=== PATIENT | male | born 1985 | race Caucasian/White ===

== ENCOUNTER 2023-09-22 22:06 | Emergency (ER) | payer OTHER, SELFPAY ==
[2023-09-22] VITALS (8 sets, daily range): BP systolic 114–132; BP diastolic 72–87; PULSE 78–100; RESP 15–22; TEMP 36.3–36.8; O2SAT 96–100
--- NOTE | ~2023-09-22 | XR_ITS ---
EXAMINATION: XR ankle LT 2V DATE: 09/22/2023 22:25 INDICATION: Left ankle injury with deformity TECHNIQUE: Anteroposterior and lateral views of the left ankle were obtained. COMPARISON: None. FINDINGS: Trimalleolar fracture at the left ankle with transverse fracture across the medial malleolus, oblique fracture lateral malleolus and separation of a portion of the posterolateral aspect of the posterior malleolus. There is dislocation of the tibiotalar articulation with the 3 malleolar fragments along with the intervening talar dome displaced posteriorly and laterally with 35 degrees lateral angulatio n. IMPRESSION: 1. Displaced and angulated Booker B3 trimalleolar fracture dislocation at the left ankle. Reviewed, dictated and finalized at location A. IMPRESSION: 1. Displaced and angulated Booker B3 trimalleolar fracture dislocation at the le ft ankle.
--- NOTE | ~2023-09-22 | XR_ITS ---
EXAMINATION: XR ankle LT 2V DATE: 09/22/2023 23:15 INDICATION: Postreduction left ankle fracture dislocation TECHNIQUE: Anteroposterior and lateral views of the left ankle were obtained. COMPARISON: None. FINDINGS: Trimalleolar fracture as previously detailed with reduction of the previously dislocated tibiotalar a rticulation with some residual lateral subluxation and widening of the anterior joint space. Decrease d, now approximately 10 degrees lateral angulation of the medial and lateral malleolar fragments and intervening talus. No new fractures identified. Joint spaces in the visualized left foot appear jenna l. Fiberglas splinting material along the ankle and distal lower leg. IMPRESSION: 1. Reduction of the prior tibiotalar dislocation with decrease in degree of displacement and angulati on of the previously detailed trimalleolar fracture. Reviewed, dictated and finalized at location A. IMPRESSION: 1. Reduction of the prior tibiotalar dislocation with decrease in degree of dis placement and angulation of the previously detailed trimalleolar fracture.
--- NOTE | 2023-09-22 22:30 | ED.GENADULT ---
HPI - General Adult General Chief complaint: Extremity Injury, Lower Stated complaint: abkle injury Time Seen by Provider: 09/22/23 22:20 History of Present Illness HPI narrative: 38-year-old male presented to the emergency department for evaluation for a left ankle injury. Patient was wrestling at home and his foot slipped on the wet floor causing him to roll his ankle. Patient presented emergency department by private transport with a left foot deformity. Patient denies striking his head denies any loss of consciousness. Patient does admit to alcohol consumption tonight. Related Data Allergies Allergy/AdvReac Type Severity Reaction Status Date / Time No Known Allergies Allergy Verified 09/22/23 22:42 Review of Systems Review of Systems: All systems reviewed & are unremarkable except as noted in HPI and below Exam Narrative: APPEARANCE: Uncomfortable appearing HEAD: normocephalic, atraumatic. EYES: PERRLA/EOMI, conjunctivae clear. NOSE: Normal no drainage EARS:TMS clear with good light reflex. THROAT: Pharynx clear, no exudate. NECK: Supple. No adenopathy, no masses. RESPIRATORY: Airway patent, respirations nonlabored. Clear to auscultation bilaterally, no rales, rhonchi, wheezing. CARDIOVASCULAR: Regular rate and rhythm without murmurs rubs or gallops. ABDOMINAL: Soft, nontender, nondistended, normal bowel sounds MUSCULOSKELETAL: left ankle deformity with slow cap refill but palpable pulse. NEURO: Alert. Cranial nerves II through XII intact. grossly intact SKIN: Warm, dry. Normal Color Course Course Emergency Course: ankle fracture was reduced, patient had strong pulses strong cap refill. Patient was placed in a short-leg with stirrups OCL. Patient was provided crutches for nonweightbearing and encouraged of close follow-up with Orthopedics. Vital Signs Vital signs: Vital Signs Temperature 98.2 F 09/22/23 22:14 Pulse Rate 94 09/22/23 22:14 Respiratory Rate 18 09/22/23 22:14 Blood Pressure 120/76 09/22/23 22:14 Pulse Oximetry 100 09/22/23 22:14 Oxygen Delivery Room Air 09/22/23 22:14 Temperature 97.4 F L 09/22/23 23:14 Pulse Rate 100 09/22/23 23:14 Respiratory Rate 15 09/22/23 23:14 Blood Pressure 132/83 09/22/23 23:14 Pulse Oximetry 100 09/22/23 23:14 Oxygen Delivery Room Air 09/22/23 23:14 Procedures Orthopedic Fracture Reduction Fracture #1: Time Out Performed: Yes Side: left Fracture Reduction Location: tibia and fibula Analgesia: procedural sedation Pre-Procedure Neuro Vascular Exam: normal Technique: direct manipulation and traction/counter-traction Post Reduction X-rays Demonstrate: acceptable reduction Post-reduction neuro exam: intact Post-reduction vascular exam: intact Splint Applied: Yes Patient Tolerated Procedure: well and no complications Procedural Sedation Procedural Sedation #1: Provider Performed: sedation and procedure Time Out: Time-out was called Informed Consent Obtained: yes Equipment in Room: bag and mask, capnography, nurse staff, crash cart, oxygen and pulse oximeter Plan for Sedation: moderate sedation ASA Class: II Mallampati Classification: class I NPO Status: last solid food (hours ago) Explanation to Patient/Family: Risk/Benefits/Alternatives Pt. Educated on Procedural Sedation: Yes Re-evaluated immediately prior: Yes Preparation: nurse staff applied, pulse oximeter, capnometry used, supplemental O2 applied, reversal agents at bedside, suction/airway equipment at bedside and IV secured IV Propofol dose (mg): 100 Patient Tolerated Procedure: well and no complications Complications: none Medical Decision Making MDM Narrative Medical decision making narrative: 38-year-old female present to the emergency department for evaluation for ankle injury.
[2023-09-22] MEDS: ONDANSETRON INJ 4 MG/2 ML VIAL IV PUSH (22:44)
[2023-09-22] MEDS: HYDROmorphone HCL INJ (*CRX) 1 MG/ML SYR 0.5 MG IV PUSH (22:44)
[2023-09-22] MEDS: SODIUM CHLORIDE 0.9% IV 1,000 ML 999 ML IV CONT (22:44)
[2023-09-22] MEDS: HYDROcodone/acetaminophen (*CRX) 5-325 MG TABLET 1 TAB PO (23:21)
== END 2023-09-22 23:53 | disposition home or self-care (01) ==
PROVIDERS: Emergency Provider Emergency Medicine
DX: S82.852A Displaced trimalleolar fracture of left lower leg, initial encounter for closed fracture (principal); X50.9XXA Other and unspecified overexertion or strenuous movements or postures, initial encounter
CPT/HCPCS: 27818; 73600; 73610; 96374; 96375; 99285; A9270; J1170; J2405; J7030

== ENCOUNTER 2023-09-26 02:14 | Day surgery (SDC) | payer OTHER, SELFPAY ==
[2023-09-25 13:04] VITALS: BMI 22.1
--- NOTE | 2023-09-25 13:20 | PC.NURSE ---
Report to the Outpatient Waiting Room, entrance under the green pavilion located off [facility], at time _1230 on date _09/26/23 . Planned Procedure Time: _1430 . Time changes happen often and if your time is changed the preop area will call you the afternoon before. - You and your visitor will be asked to self-screen and do not enter if you have any COVID symptoms. - A mask is optional within the hospital at this time. Patients may have clear liquids (water, carbonated beverages, clear teas, apple juice) until 3 hours prior to surgery with a maximum of 20 ounces. - No food from midnight until time of surgery - Infants may have breast milk until 4 hours before surgery, infant formula 6 hours prior to surgery. - Children will be allowed to drink immediately following surgery. If applicable, please bring a bottle or sippy cup to assist with drinking. Juice, water, soda, and popsicles are readily available. For infants on formula, please bring formula the day of surgery. Pacifiers are allowed. Take the following medications with a SIP of water the morning of surgery: _Lexapro and Oxycodone/Acetaminophen PRN____ DO NOT STOP ANY OF YOUR OTHER PRESCRIPTION MEDICATIONS PRIOR TO SURGERY ?EXCEPT THE FOLLOWING Medications to discontinue per physician _N/A Date to take last dose___N/A Please no make-up, nail pashto, hairspray, perfume, deodorant, or body powder the day of surgery. No jewelry (including any body piercings) or valuables the day of surgery, leave them at home. Please take a shower or bath the night before, or the morning of, surgery with an antibacterial soap. Wear comfortable, loose fitting clothing. Children are encouraged to wear pajamas. - Jewelry must be removed prior to entering the operating room. Rings and piercings that are not removed may be cut off. - The hospital will not accept responsibility for valuables. - Please leave all valuables, including medications, at home the day of surgery. If you are going home after surgery, a licensed tractor driver teamster must drive you home. - NO public transportation without another adult if you receive anesthesia. - We recommend that an adult stay with you for 24 hours following discharge. - We also recommend that you do not drive, make important decision, drink alcoholic beverages, or take any drugs that were not prescribed by your health care provider for at least 24 hours after your discharge time. For Pediatric surgeries, we recommend two adults accompany the child home. Follow any additional instructions given to you from your surgeon. If you or anyone in your household have experienced Covid symptoms in the past week, please notify your surgeon or the nurse liaison at the phone number below for possible testing. Telephone instructions given to _Jus and asked if any additional questions and then verbalized understanding. Patient advised to call surgeon office or pre surgery nurse liaison [phone] if any additional questions.
[2023-09-26] VITALS (8 sets, daily range): BP systolic 107–150; BP diastolic 55–97; PULSE 81–107; RESP 16–18; TEMP 36.3–36.8; O2SAT 97–100
--- NOTE | ~2023-09-26 | XR_ITS ---
EXAMINATION: XR surgery orthopedic DATE: 09/26/2023 15:43 INDICATION: ORIF left ankle fracture TECHNIQUE: 4 fluoroscopic images of the left ankle were obtained during procedure performed by Dr. Mcmahan. Radi ologist was not present for the imaging or procedure. The amount of fluoroscopy time used during this procedure was 0.3 minutes. COMPARISON: None. FINDINGS: Images demonstrate internal fixation of a trimalleolar fracture of the left ankle which is in near-an atomic alignment on the final images. The medial malleolar fracture is been fixed with a pair of sergo ulated lag screws. The lateral malleolar fracture is been fixed with a lateral plate and screws. The posterior malleolar fracture remains unfixed. Joint spaces appear normal. IMPRESSION: 1. Near-anatomic alignment post open reduction internal fixation of a trimalleolar fracture of the le ft ankle. See procedure note for further detail. Reviewed, dictated and finalized at location A. IMPRESSION: 1. Near-anatomic alignment post open reduction internal fixation of a trimalleo lar fracture of the left ankle. See procedure note for further detail.
--- NOTE | 2023-09-26 12:10 | WPDHPUPDATE1 ---
History and Physical Update Update Date/Time: 09/26/23 12:10 History and Physical has been reviewed, including an updated exam of the patient. There are NO changes in the patient's condition. Risks, benefits, and alternatives have been discussed and questions answered. Patient agrees to proceed with procedure.
[2023-09-26] MEDS: LACTATED RINGERS 1,000 ML 30 ML IV CONT ×2 (13:32→16:00)
[2023-09-26] MEDS: KETOROLAC 15 MG/ML VIAL (*BKC) IV PUSH (13:33)
[2023-09-26] MEDS: ACETAMINOPHEN 500 MG TABLET 1000 MG PO (13:33)
--- NOTE | 2023-09-26 13:55 | P.PNAN_ITS ---
Anes - Initial Pre Proc Eval Procedure: Operation Date: 09/26/23 14:30 Proposed Procedures p Open Reduction Internal Fixation Left Ankle Fracture - Frandy Mcmahan MD Date/Time: 09/26/23 13:55 Surgeon: Frandy Mcmahan MD Pre Op Diagnosis: left ankle fx Patient Data Age: 38 Gender: M Height: 1.75 m Weight: 67.4 kg Last Vital Signs Temp 98.3 F 09/26/23 13:28 Pulse 98 09/26/23 13:28 BP 150/89 H 09/26/23 13:28 Pulse Ox 97 09/26/23 13:28 O2 Del Method Room Air 09/26/23 13:28 Allergies Allergy/AdvReac Type Severity Reaction Status Date / Time No Known Allergies Allergy Verified 09/25/23 12:46 Home Medications Medication Instructions Recorded Confirmed Type cyclobenzaprine 10 mg tablet 10 mg PO BID PRN muscle spasm #14 09/22/23 09/25/23 Rx tabs escitalopram oxalate 10 mg tablet 10 mg PO DAILY 09/25/23 09/25/23 History (Lexapro) hydrocodone 5 mg-acetaminophen 325 1 tablet PO Q6-8H PRN Pain 09/25/23 09/25/23 History mg tablet oxycodone-acetaminophen 7.5 mg-325 1 tablet PO Q4H PRN pain #30 tabs 09/25/23 09/25/23 Rx mg tablet polyethylene glycol 3350 17 17 g PO DAILY PRN constipation 09/25/23 09/25/23 Rx gram/dose oral powder #119 grams sennosides 8.6 mg-docusate sodium 1 tab-cap PO BID #30 tabs 09/25/23 09/25/23 Rx 50 mg tablet Patient hx anesthesia problems: none Family hx anesthesia problems: none Results Review: All pre-operative results and documents have been reviewed as part of the pre- operative evaluation. [facility], LAT[facility] Surgical History Surgical History H/O vasectomy Social History Social History Social History: caffeine use Smoking packs per day: 1 Smoking cigarettes per day: 20.0 Years smoked: 10 Smoking pack-years: 10.00 Smoking status: Former smoker Tobacco type: cigarettes Second hand tobacco smoke exposure: Yes Smoking end date: 03/12/19 Alcohol intake: current Drinks per week: 24 Substance use: current Substance use type: marijuana Last use: 09/21/23 Living arrangements: with family Occupation/Education: occupation Additional occupation/education comments: [employer]- [employer] Gender identity (if verbalized by the patient): Male Spiritual care concerns: No Anes - Eval Final PreProcedure Day of Procedure 09/26/23 13:55 Patient weight: normal Heart: regular rate and rhythm Lungs: clear to auscultation Airway: Mallampati scale class II Neurological: alert and oriented Last oral intake: >/= 8 hours ASA classification: II Emergent: no Anesthetic plan: proceed Anesthesia type and monitoring: general LMA and standard monitoring Results Review: All pre-operative results and documents have been reviewed as part of the pre- operative evaluation. Ex smoker, quit approx 2020. Pt smokes marijuana approx 2 x weekly, none this am. Informed Consent: The patient's anesthetic plan and its attendant risks and benefits were discussed with the patient/family/POA. Questions were solicited and answers provided to the satisfaction of the patient/family/POA.
--- NOTE | 2023-09-26 14:11 | P.OP_ITS ---
Procedure Note - Detailed Date of Procedure 09/26/23 Pre-op Diagnosis left ankle trimalleolar fx Post-op Diagnosis Same Procedure Performed open reduction internal fixation left ankle trimalleolar fracture with fixation of medial and lateral malleolus. 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 Reduced in the emergency room. Presents now for operative zak tment. Description of Procedure After informed consent, the operative extremity was marked in the preoperative holding area. Patient received intravenous antibiotics. Patient was then taken to the operating room and underwent general anesthesia by the anesthesia team. Positioned supine on the operating room table with a soft bump under the ipsilat eral hip. A time-out was performed confirming the patient, site of the surgery, operative plan. Left Lower extremity then prepped and draped in the usual sterile surgical fashion using ChloraPrep skin solution. Foot and ankle exsanguinated and a thigh tourniquet inflated to 250 mmHg. Longitudinal incision made over the lateral ankle distal fibula with a 15 blade knife. Hemostasis controlled with electrocautery. Full-thickness soft tissue flaps developed and the fascia was incised in line with the skin incision. Fracture identified and cleared with a dental pick, irrigation and rongeur. Fracture reduced and held with bone-holding clamp. Image intensification confirmed reduction of the fracture and the ankle mortise. Fixation achieved with a lateral plate with unicortical screws distal to fracture and bicortical screws proximal to the fracture. Good alignment and stability of the fracture noted. Image intensification used to confirm reduction of the fracture and placement of the hardware. Medial side then addressed. Longitudinal incision made with a 15 blade knife over the medial malleolus fracture. Hemostasis controlled with electrocautery. Fascia incised in line with skin incision. Periosteum cleared from the medial malleolus fracture. Medial side of the joint inspected and noted to have mild amount of trauma to the chondral surface. Thorough irrigation of the ankle joint and suctioned out. Fracture reduced and provisionally pinned. Fixation achieved with two 4.0 mm partially threaded cancellous screws placed in cannulated screw fashion. Image intensification confirmed reduction of the fracture and placement of the hardware. Stress of the ankle performed with good stability of the ankle mortise in all directions. Posterior malleolus noted to be reduced and stable. Wounds thoroughly irrigated with antibiotic solution. Fascia repaired with 00 Vicryl interrupted suture. Subcutaneous tissue repaired with 000 Monocryl interrupted suture and Skin approximated with michele. Sterile dressings applied followed by bulky dressing and splint. Implants Arthrex fibular plate and screws, 4.0 mm partially threaded screw X 2 Estimated Blood Loss 10 Tourniquet Time Total Tourniquet Time: 60 Drains No Packing No Pathology None sent Complications None Condition Stable Disposition PACU [facility] Billing Surgery - Charge Forward: Surgery Billing ([id number])
--- NOTE | 2023-09-26 14:31 | WPDANESPNB ---
Anes - Peripheral Nerve Block Date/Time: 09/26/23 14:31 I have discussed with the patient/family/POA the placement of a peripheral nerve block for post-operative pain management, including associated risks, benefits, complications, and side effects. Alternative methods of post-operative analgesia were detailed. Questions were solicited and answers provided to the satisfaction of the patient/family/POA. Time-Out: A pre-procedural Time-Out was completed immediately before starting the procedure and confirmed: Patient Identification, Site, Procedure, Patient Position and the Availability of Requisite Equipment. Clinical Indications: Acute post-operative pain management requested by the operative surgeon. Nerve Block Insertion Note Anes-nerve block: adductor canal left Patient position: supine Skin prep: chlorhexidine Needle: 22 gauge, stimulating, insulated echogenic needle. Needle length: 80 mm Technique: ultrasound Injectate: other (Bupiv 0.5%, 12 mls. ) Observations: tolerated well Complications: none Procedure start time:: 141 Procedure end time:: 1425
[2023-09-26] MEDS: ceFAZolin 2 GM/D5W 50 ML 2 GM/50 ML BAG IVPB (14:36)
--- NOTE | 2023-09-26 14:40 | WPDANESPNB ---
Anes - Peripheral Nerve Block Date/Time: 09/26/23 14:40 I have discussed with the patient/family/POA the placement of a peripheral nerve block for post-operative pain management, including associated risks, benefits, complications, and side effects. Alternative methods of post-operative analgesia were detailed. Questions were solicited and answers provided to the satisfaction of the patient/family/POA. Time-Out: A pre-procedural Time-Out was completed immediately before starting the procedure and confirmed: Patient Identification, Site, Procedure, Patient Position and the Availability of Requisite Equipment. Clinical Indications: Acute post-operative pain management requested by the operative surgeon. Nerve Block Insertion Note Anes-nerve block: adductor canal left Patient position: supine Skin prep: chlorhexidine Needle: 22 gauge, stimulating, insulated echogenic needle. Needle length: 80 mm Technique: ultrasound Injectate: other (Bupiv 0.5%, 12 mls. ) Observations: tolerated well Complications: none Procedure start time:: 141 Procedure end time:: 1425
== END 2023-09-26 17:48 | disposition home or self-care (01) ==
PROVIDERS: Visit Provider Orthopaedic Surgery
PROC: (CPT 27822; principal; 2023-09-26 14:30)
DX: S82.852A Displaced trimalleolar fracture of left lower leg, initial encounter for closed fracture (principal); G89.18 Other acute postprocedural pain; X50.0XXA Overexertion from strenuous movement or load, initial encounter; Y93.72 Activity, wrestling; Z87.891 Personal history of nicotine dependence; F12.90 Cannabis use, unspecified, uncomplicated
CPT/HCPCS: 27822; 64447; 99199; A9270; C1713; C1769; J0690; J1100; J1885; J2250; J2371; J2405; J2704; J7120